=== PATIENT | female | born 1945 | race Two or more races ===

== ENCOUNTER → 2016-08-03 | Outpatient (CLI) | payer OTHER ==
[~2016-08-03] MED LIST: NO MEDICATIONS; PREDNISONE10 MG/DOSE PO; VIBRAMYCIN100 M1 PO
--- NOTE | ~2016-08-03 | CT71 ---
[facility]. [facility] A Service of [facility] RADIOLOGY TEXT RESULTS PATIENT: FROILAN HUSSEIN LOCATION: [facility] : 49 UNIT #: [id number] AGE: [address]: Ashwin Lindsay II, MD SEX: F ORDER DR: [id number] [facility] [address] [place], [place] [address] [id number] O MR#: [id number] Acc #: [id number] NAME: FROILAN HUSSEIN : 1945 SEX: F STUDY DATE/TIME: 08/03/2016 9:26 UNIT: [facility] ROOM: STUDY DESCRIPTION: CT Head Wo Contrast Attending Physician: Ashwin Lindsay II., M.D. Referring Physician: Ashwin Lindsay II., M.D. Ordering Physician: Ashwin Lindsay II., M.D. Primary Care Physician: [facility] MEDICAL IMAGING REPORT This report is preliminary unless electronic signature is present EXAM Head CT without. DATE OF EXAM 08/03/2016 HISTORY Migraine headaches. Fell 6 months ago. Injured head, pain all over head off and on for 6 months. COMMENT Routine noncontrast head CT is reviewed. COMPARISON There is comparison study from 01/15/2015. TECHNIQUE NOTE: This CT exam was performed with one or more of the following radiation dose reduction techniques: automatic exposure control, adjustment of mA and/or kV according to patient size, and iterative reconstruction. FINDINGS There is no displaced calvarial fracture. The visualized mastoid air cells are clear. 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 There is mild mucosal thickening in the visualized paranasal sinuses. There is partial opacification of the right sphenoid sinus. Retained secretions are noted within it, and there is some wall thickening consistent with a component of chronic osteitis. This is a possible source of headache. The findings are present also in 2014. There is no evidence for extraaxial fluid collection or acute intracranial STS. [facility] A Service of [facility] RADIOLOGY TEXT RESULTS PATIENT: FROILAN HUSSEIN [id number] : 49 UNIT #: [id number] AGE: [address]: Ashwin Lindsay II, MD SEX: F ORDER DR: hemorrhage. There are areas of abnormal white matter low-attenuation, [id number] amount seen previously, possibly progressed (more conspicuous on today's exam). This is probably due to small vessel disease, and please correlate for risk factors. There is no associated mass effect. Small areas of low attenuation in the anterior basal ganglia likely also due to small vessel disease with lacunar type insults. There is no midline shift. The basilar cisterns are patent. There is vascular calcifications at the base of the brain. There is some artifact from beam-hardening. IMPRESSION 1. No acute intracranial abnormalities appreciated. 2. Probable sequelae of small vessel disease likely mildly progressed from the study of 2014. 3. Sinusitis including evidence of chronic sinusitis with retained secretions in the right sphenoid sinus. Please correlate clinically. This is a possible source of headache. Dictated by... Annabel Muñoz M.D. THIS IS AN ELECTRONICALLY VERIFIED REPORT Annabel Muñoz M.D. at 08/04/2016 8:05 AM YOLIS/alayna TD: 08/03/2016 19:55 JOB #: [id number] MEDICAL IMAGING REPORT Page 1 of 1 COPY
== END | disposition home or self-care (01) ==
LOC: CCAT 08:40
DX: G43.909 Migraine, unspecified, not intractable, without status migrainosus (principal); J32.3 Chronic sphenoidal sinusitis
CPT/HCPCS: 70450